=== PATIENT | female | born 1940 | race Caucasian/White ===

== ENCOUNTER → 2016-09-05 | Outpatient (REF) | payer MEDICARE, BC, MEDICAID ==
[~2016-09-05] MED LIST: DONETAB6 PO; DRIS50002 PO; FAMO20TA PO; FLUO10CA8 PO; LEVO50TA5 PO; LOTRCRE TOP; MECL-68 PO; METO25TA74 PO; MIRT1TAB PO; PRAV1TAB39 PO; VITA10002 PO
[2016-09-05 08:51] LABS: MEAN CORPUSCULAR HEMOGLOBIN 28.7 pg (27.0-33.0); MEAN CORPUSCULAR HGB CONC 33.6 g/dl (32.0-36.5); MEAN CORPUSCULAR VOLUME 85.5 fl (80.0-96.0); RED CELL DISTRIBUTION WIDTH 14.9 % (11.5-14.5); WHITE BLOOD COUNT 5.8 K/mm3 (4.0-10.0)
[2016-09-05 09:32] LABS: ALBUMIN 3.1 GM/DL (3.2-5.2); ALBUMIN/GLOBULIN RATIO 1.03 (1.00-1.93); BILIRUBIN,TOTAL 0.4 MG/DL (0.2-1.0); CALCIUM LEVEL 8.5 MG/DL (8.8-10.2); CREATININE FOR GFR 1.67 MG/DL (0.55-1.02); GLOMERULAR FILTRATION RATE 31.8 (>39); POTASSIUM SERUM 4.5 MEQ/L (3.5-5.1); TOTAL PROTEIN 6.1 GM/DL (6.4-8.2)
== END | disposition home or self-care (01) ==
LOC: SKLAB6 07:00
PROVIDERS: ATTEND Internal Medicine
DX: E03.9 Hypothyroidism, unspecified (principal); E11.9 Type 2 diabetes mellitus without complications

== ENCOUNTER → 2016-09-30 | Outpatient (REF) | payer MEDICARE, BC, MEDICAID ==
[2016-09-30 09:18] LABS: CALCIUM LEVEL 8.5 MG/DL (8.8-10.2); CREATININE FOR GFR 2.06 MG/DL (0.55-1.02); GLOMERULAR FILTRATION RATE 24.9 (>39); POTASSIUM SERUM 4.2 MEQ/L (3.5-5.1)
== END | disposition home or self-care (01) ==
LOC: SKLAB6 07:00
PROVIDERS: ATTEND Internal Medicine
DX: Z51.81 Encounter for therapeutic drug level monitoring (principal); Z79.899 Other long term (current) drug therapy

== ENCOUNTER → 2016-10-15 | Outpatient (REF) | payer MEDICARE, BC, MEDICAID ==
[2016-10-15 07:51] LABS: CALCIUM LEVEL 8.5 MG/DL (8.8-10.2); CREATININE FOR GFR 1.81 MG/DL (0.55-1.02); GLOMERULAR FILTRATION RATE 28.9 (>39); POTASSIUM SERUM 4.4 MEQ/L (3.5-5.1)
[2016-10-15 08:17] LABS: MEAN CORPUSCULAR HEMOGLOBIN 30.3 pg (27.0-33.0); MEAN CORPUSCULAR HGB CONC 34.6 g/dl (32.0-36.5); MEAN CORPUSCULAR VOLUME 87.4 fl (80.0-96.0); RED CELL DISTRIBUTION WIDTH 13.7 % (11.5-14.5); WHITE BLOOD COUNT 6.6 K/mm3 (4.0-10.0)
== END ==
LOC: SKLAB6 00:44
PROVIDERS: ATTEND Internal Medicine
DX: I10 Essential (primary) hypertension (principal); D64.9 Anemia, unspecified

== ENCOUNTER → 2016-10-31 | Outpatient (REF) | payer MEDICARE, BC, MEDICAID ==
[2016-10-31 09:32] LABS: MEAN CORPUSCULAR HEMOGLOBIN 29.4 pg (27.0-33.0); MEAN CORPUSCULAR HGB CONC 33.2 g/dl (32.0-36.5); MEAN CORPUSCULAR VOLUME 88.7 fl (80.0-96.0); RED CELL DISTRIBUTION WIDTH 13.3 % (11.5-14.5); WHITE BLOOD COUNT 5.5 K/mm3 (4.0-10.0)
[2016-10-31 10:01] LABS: CALCIUM LEVEL 8.1 MG/DL (8.8-10.2); CREATININE FOR GFR 2.07 MG/DL (0.55-1.02); GLOMERULAR FILTRATION RATE 24.8 (>39); POTASSIUM SERUM 4.4 MEQ/L (3.5-5.1)
== END ==
LOC: SKLAB6 07:00
PROVIDERS: ATTEND Internal Medicine
DX: I12.9 Hypertensive chronic kidney disease with stage 1 through stage 4 chronic kidney disease, or unspecified chronic kidney disease (principal); N18.4 Chronic kidney disease, stage 4 (severe)

== ENCOUNTER → 2016-11-04 | Outpatient (REF) | payer MEDICARE, BC, MEDICAID ==
[2016-11-04 08:57] LABS: CALCIUM LEVEL 8.4 MG/DL (8.8-10.2); CREATININE FOR GFR 1.66 MG/DL (0.55-1.02); POTASSIUM SERUM 4.9 MEQ/L (3.5-5.1)
== END ==
LOC: SKLAB6 07:00
PROVIDERS: ATTEND Internal Medicine
DX: I10 Essential (primary) hypertension (principal)

== ENCOUNTER → 2016-11-28 | Outpatient (REF) | payer MEDICARE, BC, MEDICAID ==
[2016-11-28 08:30] LABS: MEAN CORPUSCULAR HGB CONC 34.7 g/dl (32.0-36.5); MEAN CORPUSCULAR VOLUME 89.6 fl (80.0-96.0); RED CELL DISTRIBUTION WIDTH 13.4 % (11.5-14.5); WHITE BLOOD COUNT 6.3 K/mm3 (4.0-10.0)
[2016-11-28 08:40] LABS: CALCIUM LEVEL 8.6 MG/DL (8.8-10.2); CREATININE FOR GFR 1.91 MG/DL (0.55-1.02); GLOMERULAR FILTRATION RATE 27.2 (>39); POTASSIUM SERUM 4.7 MEQ/L (3.5-5.1)
== END ==
LOC: SKLAB6 07:00
PROVIDERS: ATTEND Internal Medicine
DX: I12.9 Hypertensive chronic kidney disease with stage 1 through stage 4 chronic kidney disease, or unspecified chronic kidney disease (principal); N18.9 Chronic kidney disease, unspecified; E11.9 Type 2 diabetes mellitus without complications

== ENCOUNTER → 2016-12-05 | Outpatient (REF) | payer MEDICARE, BC, MEDICAID ==
[2016-12-05 09:53] LABS: ALBUMIN 3.3 GM/DL (3.2-5.2); ALBUMIN/GLOBULIN RATIO 0.89 (1.00-1.93); BILIRUBIN,TOTAL 0.7 MG/DL (0.2-1.0); CALCIUM LEVEL 8.8 MG/DL (8.8-10.2); CREATININE FOR GFR 1.9 MG/DL (0.55-1.02); GLOMERULAR FILTRATION RATE 27.4 (>39); POTASSIUM SERUM 4.9 MEQ/L (3.5-5.1)
== END ==
LOC: SKLAB6 07:00
PROVIDERS: ATTEND Internal Medicine
DX: N18.4 Chronic kidney disease, stage 4 (severe) (principal); D63.1 Anemia in chronic kidney disease; E03.9 Hypothyroidism, unspecified

== ENCOUNTER → 2016-12-05 | Outpatient (REF) | payer MEDICARE, BC, MEDICAID | LOC: SKLAB6 07:00 | PROVIDERS: ATTEND Internal Medicine | DX: E11.9 Type 2 diabetes mellitus without complications (principal) ==

== ENCOUNTER → 2017-01-02 | Outpatient (REF) | payer MEDICARE, BC, MEDICAID ==
[2017-01-02 09:14] LABS: MEAN CORPUSCULAR HEMOGLOBIN 31.6 pg (27.0-33.0); MEAN CORPUSCULAR HGB CONC 33.6 g/dl (32.0-36.5); MEAN CORPUSCULAR VOLUME 94.2 fl (80.0-96.0); RED CELL DISTRIBUTION WIDTH 12.9 % (11.5-14.5); WHITE BLOOD COUNT 5.7 K/mm3 (4.0-10.0)
[2017-01-02 09:39] LABS: CALCIUM LEVEL 8.1 MG/DL (8.8-10.2); CREATININE FOR GFR 1.59 MG/DL (0.55-1.02); GLOMERULAR FILTRATION RATE 33.5 (>39); POTASSIUM SERUM 4.2 MEQ/L (3.5-5.1)
== END ==
LOC: SKLAB6 07:00
PROVIDERS: ATTEND Internal Medicine
DX: I12.9 Hypertensive chronic kidney disease with stage 1 through stage 4 chronic kidney disease, or unspecified chronic kidney disease (principal); N18.9 Chronic kidney disease, unspecified; D64.9 Anemia, unspecified

== ENCOUNTER → 2017-01-21 | Outpatient (REF) | payer MEDICARE, BC, MEDICAID ==
[~2017-01-21] MED LIST changes: +AMLO5TAB2 PO; +BENCRE TOP; +BUSP10TA PO; +CALC1250 PO; +DULC10SU2 PR; +ENEM1ENE4 PR; +FEVE650S8 PR; +HYDR10TAB PO; +INSUDET SC; +JANU25TA PO; +LEXA1TAB PO; +MEMA1TAB2 PO; +MILKSUS PO; +SENN8.6T7 PO; +TYLE325T5 PO; +VITA100066 PO
--- NOTE | 2017-01-21 22:35 | ECGEPIP ---
Stationary ECG Study [facility] Test Date: 2017-01-21 Pat Name: EMILY MURPHY Department: Room: - Gender: F Enrollment Management Coordinator: ARNULFO : 1940 Requested By: Apryl Hernandez Order Number: [id number] Reading MD: Rudy Ellis Measurements Intervals [place] Rate: 63 P: 61 [place]: 179 QRS: 8 QRSD: 89 T: 131 QT: 395 QTc: 405 Interpretive Statements SINUS RHYTHM, Poor R-wave progression. NONSPECIFIC T-WAVE ABNORMALITY Electronically Signed On 01-21-2017 22:35:28 EDT by Rudy Ellis
== END ==
LOC: SKLAB6 08:00
PROVIDERS: ATTEND Internal Medicine
DX: R94.31 Abnormal electrocardiogram [ECG] [EKG] (principal)

== ENCOUNTER 2017-01-30 05:55 | Observation (INO) | payer MEDICARE, BC, MEDICAID ==
[~2017-01-30] VITALS: Ht 160 cm; Wt 90.9 kg
[~2017-01-30 05:55] MED LIST changes: -AMLO5TAB2 PO; -BENCRE TOP; -BUSP10TA PO; -CALC1250 PO; -DULC10SU2 PR; -ENEM1ENE4 PR; -FEVE650S8 PR; -HYDR10TAB PO; -INSUDET SC; -JANU25TA PO; -LEXA1TAB PO; -MEMA1TAB2 PO; +METO1TAB32 PO; -METO25TA74 PO; -MILKSUS PO; -SENN8.6T7 PO; -TYLE325T5 PO; -VITA100066 PO
[2017-01-30] MEDS ORDERED: ASPIRIN 81 MG CHEW TABLET PO ONE (06:45)
[2017-01-30 07:08] LABS: BASO % 0.4 % (0.0-1.0); EOS # 0.1 K/mm3 (0.0-0.50); EOS % 1.5 % (0.0-3.0); LARGE UNSTAINED CELL # 0.1 K/mm3 (0.0-0.4); LARGE UNSTAINED CELL % 1.3 % (0.0-4.0); LYMPH # 1.2 K/mm3 (1.5-4.5); LYMPH % 14.8 % (24.0-44.0); MEAN CORPUSCULAR HEMOGLOBIN 31.6 pg (27.0-33.0); MEAN CORPUSCULAR HGB CONC 34.9 g/dl (32.0-36.5); MEAN CORPUSCULAR VOLUME 90.5 fl (80.0-96.0); MONO # 0.4 K/mm3 (0.0-0.8); MONO % 5.5 % (0.0-5.0); NEUTROPHILS # 5.7 K/mm3 (1.8-7.7); NEUTROPHILS % 76.4 % (36.0-66.0); PLATELET COUNT, AUTOMATED 178 k/mm3 (150-450); RED CELL DISTRIBUTION WIDTH 12.9 % (11.5-14.5); WHITE BLOOD COUNT 7.4 K/mm3 (4.0-10.0)
[2017-01-30 07:24] LABS: CALCIUM LEVEL 8.4 MG/DL (8.8-10.2); CREATININE FOR GFR 1.83 MG/DL (0.55-1.02); GLOMERULAR FILTRATION RATE 28.5 (>39); POTASSIUM SERUM 4.5 MEQ/L (3.5-5.1)
[2017-01-30] MEDS ORDERED: METOPROLOL SUCC *XL* 25MG TAB (TopROL *XL*) PO ONE (07:30)
[2017-01-30] MEDS ORDERED: hydrALAZINE INJ 20 MG/ML VIAL IV ONE ×3 (07:45→16:45)
--- NOTE | 2017-01-30 08:05 | REP ---
Portable chest: Single view. History: Chest pain Comparison study: April 21, 2016. Findings: EKG monitoring electrodes overlie the chest. The lungs are well inflated and free of infiltrate. Pleural angles are sharp. The heart is enlarged unchanged from prior study. Pulmonary vasculature is not increased. Impression: No active disease. Signed by Umair Odonnell MD 01/30/2017 07:56 A
[2017-01-30] MEDS ORDERED: VALSARTAN 80 MG TAB (DIOVAN) PO ONE (14:45)
[2017-01-30] MEDS ORDERED: VITA100066 PO (16:36)
[2017-01-30] MEDS ORDERED: JANU25TA PO (16:36)
[2017-01-30] MEDS ORDERED: SENN8.6T7 PO (16:36)
[2017-01-30] MEDS ORDERED: BUSP10TA PO (16:36)
[2017-01-30] MEDS ORDERED: INSUDET SC (16:36)
[2017-01-30] MEDS ORDERED: MEMA1TAB2 PO (16:36)
[2017-01-30] MEDS ORDERED: LEXA1TAB PO (16:36)
[2017-01-30] MEDS ORDERED: VITA10002 PO (16:36)
[2017-01-30] MEDS ORDERED: MILKSUS PO (16:42)
[2017-01-30] MEDS ORDERED: FEVE650S8 PR (16:42)
[2017-01-30] MEDS ORDERED: TYLE325T5 PO (16:42)
[2017-01-30] MEDS ORDERED: BENCRE TOP (16:42)
[2017-01-30] MEDS ORDERED: ENEM1ENE4 PR (16:42)
[2017-01-30] MEDS ORDERED: DULC10SU2 PR (16:42)
[2017-01-30] MEDS ORDERED: CALC1250 PO (16:42)
[2017-01-30] MEDS ORDERED: CALCIUM CARB SUSP 1250MG/5ML UNIT DOSE CUP PO PRN (17:30)
[2017-01-30] MEDS ORDERED: MOM 30ML SUSPENSION UDC PO PRN (17:30)
[2017-01-30] MEDS: HumaLOG INSULIN (NovoLOG) PER UNIT SC SCH ×2 (17:30→20:38)
[2017-01-30] MEDS ORDERED: GLUCOSE 4 GM CHEW TABLET PO PRN (17:30)
[2017-01-30] MEDS ORDERED: BISACODYL 5 MG TAB PO PRN (17:30)
[2017-01-30] MEDS ORDERED: FLEET ENEMA PR PRN (17:30)
[2017-01-30] MEDS ORDERED: GLUCAGON FOR INJ 1 MG VIAL (J1610) SC PRN (17:30)
[2017-01-30] MEDS ORDERED: DEXTROSE 50% 50 ML SYRINGE IV PRN (17:30)
[2017-01-30] MEDS ORDERED: **hydrALAZINE** 10 MG TAB PO PRN (18:15)
--- NOTE | 2017-01-30 18:50 | REPUSA ---
CLINICAL HISTORY: HYPERTENSIVE URGENCY TECHNIQUE: Multiple axial CT images were obtained through the brain without IV contrast material. COMMENTS: There is normal configuration of sella turcica. There are no intra or extra-axial collections. There is no mass effect or midline shift. There is no evidence of hematoma formation. No hydrocephalus is p resent. The ventricles are symmetrical. No abnormal calcifications are present. There is diffuse age-appropriate cerebellar and cerebral atrophy with proportionally dilated ventricl es and cortical sulci. There are bilateral confluent periventricular and subcortical white matter hypolucencies compatible w ith severe chronic microvascular disease. Otherwise, no significant focal abnormalities are seen either in the posterior fossa or supratentoria l compartment. IMPRESSION: 1. Severe cerebellar and cerebral atrophy. 2. Severe chronic microvascular disease. 3. No evidence of acute intracranial pathology. Thank you for your kind referral of this patient.
[2017-01-30] MEDS: ACETAMINOPHEN TAB 650MG DOSE (2X325MG) PO PRN (19:34)
[2017-01-30 20:50] VITALS: BP 172/77
[2017-01-30] MEDS ORDERED: **hydrALAZINE** 10 MG TAB PO SCH (21:00)
[2017-01-30] MEDS: busPIRone 10 MG TAB PO SCH (21:11)
[2017-01-30] MEDS: SENOKOT S TAB PO SCH (21:11)
[2017-01-30] MEDS: HEPARIN SOD (PORCINE) 5000 UNITS/ML VIAL SC SCH (21:11)
--- NOTE | 2017-01-30 22:48 | HPE ---
DATE OF ADMISSION: 01/30/2017 PRIMARY CARE PHYSICIAN: Dr. Eaton. CHIEF COMPLAINT: Hypertension urgency. HISTORY OF PRESENT ILLNESS: Ms. Hernandez is a 76-year-old female with multiple past medical history who presents to the ER due to experiencing hypotension urgency. Patient is from [facility] and expressed this morning when nurses taking her temperature, they found that her temperature is elevated, however patient expressed that she had an episode like this before and she was transferred to the ED. Patient denies having chest pain, palpitation, racing or skipping heart beat, headache, vision changes, hearing changes. Patient also denies having seizure type activities, abdominal pain or weaknesses. However, patient expressed that last night patient had one episode of chest discomfort, mostly in the mediastinum, however patient expressed she had the chest discomfort before, and it comes and goes. Patient denies bleeding, or having hematuria or hematochezia. Patient denies fever, chills or night sweats. Patient also denies having sick contacts. At ER patient received aspirin 325, also one dose of Toprol XL 25 mg, and hydralazine for a total dose of 40 mg as well as one dose of Valsartan 80 mg by mouth. Hospitalist was called to admit the patient. ALLERGIES: 1. PIOGLITAZONE 2. SHELLFISH allergy. PAST MEDICAL HISTORY: 1. Diabetes. 2. Hypertension. 3. Hyperlipidemia. 4. Anxiety. 5. Depression. 6. Dementia without any behavior symptoms. PAST SURGICAL HISTORY: 1. . 2. Hysterectomy. 3. Bilateral knee replacement. 4. Eye implantation. 5. Colonoscopy in 2005. HOME MEDICATION: - acetaminophen 650 mg by mouth every 4 hours as needed pain - Tylenol 650 mg by mouth every 4 hours as needed pain - BenGay extra strength, one dose topical twice a day applied to right shoulder - Dulcolax 10 mg as needed constipation - Buspirone 10 mg by mouth twice a day - calcium carbonate 30 mL by mouth every 8 hours as needed dyspnea - vitamin D 1000 units by mouth daily - vitamin B12 1000 mcg by mouth daily - Senna S 1 tab by mouth twice a day - donepezil 10 mg by mouth at bedtime - enema as needed constipation - Lexapro 10mg by mouth twice a day - Levemir 18 units before food - Synthroid 50 mcg by mouth daily - memantine 10 mg by mouth daily - metoprolol succinate 25 mg by mouth daily - Milk of Magnesia 30 mL by mouth daily as needed constipation - Januvia 25 mg by mouth daily FAMILY HISTORY: Patient's mother due to stroke. Patient father decreased at age 80 due to diabetes. Patient has two brothers and two sisters, who are healthy for their age. Patient expressed she has one son and two daughters who are healthy for their age. SOCIAL HISTORY: Patient is living in [facility] and patient denies history of smoking in her life, however patient had been exposed to second hand smoking due to her being a heavy smoker. Patient was drinking alcohol occasionally. Patient denies illicit drug use. Patient has not traveled outside of the [place]. Patient does not have any pets. REVIEW OF SYSTEMS: GENERAL: Patient denies fever, chills, night sweats, weight loss of weight gain. HEENT: Patient denies any vision or hearing changes. Patient denies headaches, lightheadedness, or dizziness. Patient also denies problem with chewing food or sinusitis. NECK: Patient denies decreased range of motion of her neck. HEART: Patient denies palpitations, racing or skipping heartbeat, chest pain or chest discomfort. LUNGS: The patient denies shortness of breath, coughing or wheezing. ABDOMEN: The patient denies abdominal pain, nausea, vomiting, diarrhea, constipation, melena, hematochezia, hemoptysis. NEUROLOGICAL: The patient denies history of transient ischemic attack (TIA), cerebrovascular accident (CVA) or seizure type activity. PHYSICAL EXAMINATION: VITAL SIGNS: Temperature 97.6, pulse 69, respiratory rate 20, blood pressure 183/83, pulse oximetry 94 on room air. GENERAL APPEARANCE: The patient was lying in bed in no acute distress. Patient was awake, alert and oriented to time and place but not person. HEENT: Normocephalic, atraumatic. Pupils are equal, reactive to light. Oral mucosa is moist. NECK: Soft, supple. No lymphadenopathy or thyromegaly. No jugular venous distention (JVD). HEART: Regular rate and rhythm. Normal S1, S2. ABDOMEN: Soft, nontender, obese. Positive bowel sounds in all quadrants. EXTREMITIES: No lower extremity edema. +2 pulses in both lower extremities. Patient has normal sensation in both upper and lower extremities. Patient's has normal range of motion both lower extremities. NEUROLOGICAL: Cranial nerves II through XII intact. No focal deficiencies. LABORATORY DATA: WBC 7.4, RBC 3.93, hemoglobin 12.4, hematocrit 35.6, MCV 90.5, MCH 31.6, MCHC 34.9, RDW 12.9, platelet count 178, neutrophil percentage 76.4, lymphocyte percentage 14.8, monocyte percentage 5.5, eosinophil percentage 1.5, basophil percentage 0.4, leucocyte percentage 1.3. Sodium 137, potassium 4.5, chloride 103, carbon dioxide 28, anion gap 6, BUN 23, creatinine 1.83, GFR 28.5. Fasting glucose 217, calcium 8.4, total creatinine 61, CK MB 1.7, Troponin I 0.02, IMAGING TECHNIQUE: Chest x-ray shows no acute disease. CT of the head shows severe cerebral and cerebellar atrophy, also severe chronic microvascular disease and no evidence of acute intracranial pathology. ASSESSMENT AND PLAN: 1. Hypertension urgency. At this time we have ordered echocardiogram. Result is pending at this time. After patient was started on hydralazine, patient's blood pressure has decreased to the normal range. We will continue patient on hydralazine as needed for systolic blood pressure more than 150, and holding parameter for systolic blood pressure of less than 110 and heart rate less than 60. Also we will continue patient on Toprol XL with holding parameters of the heart rate less than 60. Patient also received Valsartan, however we hold the Valsartan due to abnormal renal function. Also, we have ordered the urine creatinine and sodium for calculating FENA and the result is pending. CT of the head did not show any new pathology. We will continue to monitor patient for abnormal symptoms. 2. Hypertension. At home, patient was on Valsartan, however I have stopped Valsartan. We will continue patient on hydralazine as needed, as well as metoprolol succinate. At this time, patient is stable. 3. Hyperlipidemia. This is a chronic issue. 4. Anxiety. We will continue patient on Lexapro 10 mg by mouth daily. 5. Diabetes. We will continue patient with the home dosage of Levemir. Patient at home is on Januvia, however we held the Januvia due to abnormal kidney function, and we have started patient on sliding scale. 6. Acute renal failure superimposed on chronic renal disease. I do not have any documentation regarding patient's baseline, however based on previous labs, patient's creatinine has increased from her baseline. At this time, we have stopped the neurogenic medications. We will continue monitoring patient's renal function. 7. Deep vein thrombosis prophylaxis. Patient is on heparin 5000 twice a day. My preceptor for this patient encounter was Dr. Yaya Nava. The preceptor was physically present in the building during the encounter and was fully available as needed. All aspects of the patient interview, examination, medical decision making process, and medical care plan development were reviewed and approved by the preceptor. The preceptor is aware and concurs with the plan as stated in the body of this note and will attest to such by his/her co-signature. SERGIO
[2017-01-31] VITALS (15 sets, daily range): BP systolic 152–198; BP diastolic 62–100
[2017-01-31] MEDS: ONDANSETRON 4MG/2ML VIAL (J2405) IV PRN ×2 (00:30→06:33)
[2017-01-31] MEDS ORDERED: amLODIPine 10 MG TAB PO ONE (01:45)
[2017-01-31] MEDS ORDERED: hydrALAZINE INJ 20 MG/ML VIAL IV ONE (02:45)
[2017-01-31] MEDS: LEVOTHYROXINE 50MCG TABLET (0.05MG) PO SCH (06:33)
[2017-01-31] MEDS: HumaLOG INSULIN (NovoLOG) PER UNIT SC SCH ×4 (07:47→21:00)
[2017-01-31 07:55] LABS: ALBUMIN 3.4 GM/DL (3.2-5.2); ALBUMIN/GLOBULIN RATIO 1.03 (1.00-1.93); BILIRUBIN,TOTAL 0.6 MG/DL (0.2-1.0); CALCIUM LEVEL 8.7 MG/DL (8.8-10.2); CREATININE FOR GFR 1.69 MG/DL (0.55-1.02); GLOMERULAR FILTRATION RATE 31.2 (>39); MAGNESIUM LEVEL 2.3 MG/DL (1.8-2.4); TOTAL PROTEIN 6.7 GM/DL (6.4-8.2)
[2017-01-31 07:56] LABS: POTASSIUM SERUM 5.4 MEQ/L (3.5-5.1)
[2017-01-31 08:00] LABS: BASO % 0.4 % (0.0-1.0); EOS % 0.4 % (0.0-3.0); LARGE UNSTAINED CELL # 0.1 K/mm3 (0.0-0.4); LARGE UNSTAINED CELL % 1.1 % (0.0-4.0); LYMPH # 0.9 K/mm3 (1.5-4.5); MEAN CORPUSCULAR HEMOGLOBIN 31.9 pg (27.0-33.0); MEAN CORPUSCULAR HGB CONC 34.7 g/dl (32.0-36.5); MONO # 0.4 K/mm3 (0.0-0.8); MONO % 5.3 % (0.0-5.0); NEUTROPHILS # 6.3 K/mm3 (1.8-7.7); NEUTROPHILS % 82.9 % (36.0-66.0); PLATELET COUNT, AUTOMATED 175 k/mm3 (150-450); RED CELL DISTRIBUTION WIDTH 13.2 % (11.5-14.5); WHITE BLOOD COUNT 7.6 K/mm3 (4.0-10.0)
[2017-01-31] MEDS: HEPARIN SOD (PORCINE) 5000 UNITS/ML VIAL SC SCH ×2 (08:40→22:14)
[2017-01-31] MEDS: busPIRone 10 MG TAB PO SCH ×2 (08:41→22:12)
[2017-01-31] MEDS: SENOKOT S TAB PO SCH ×2 (08:41→21:00)
[2017-01-31] MEDS: ESCITALOPRAM OXALATE 10 MG TAB (LEXAPRO) PO SCH (08:41)
[2017-01-31] MEDS: ACETAMINOPHEN TAB 650MG DOSE (2X325MG) PO PRN (08:41)
[2017-01-31] MEDS: METOPROLOL SUCC *XL* 25MG TAB (TopROL *XL*) PO SCH (08:42)
[2017-01-31] MEDS: LEVEMIR (INSULIN DETEMIR) 1 UNITS/0.01ML SC SCH (08:42)
[2017-01-31] MEDS: VITAMIN D 1,000 INTERNATIONAL UNITS TABLET PO SCH (08:43)
[2017-01-31] MEDS: CYANOCOBALAMIN 500 MCG TAB PO SCH (08:43)
[2017-01-31] MEDS ORDERED: **hydrALAZINE** 10 MG TAB PO SCH (09:00)
--- NOTE | 2017-01-31 11:47 | ECGEPIP ---
Stationary ECG Study [facility] - ED Test Date: 2017-01-30 Pat Name: EMILY MURPHY Department: Room: - Gender: F Life Agent: lyndsay : 1940 Requested By: CONRADO Abdul Order Number: [id number] Reading MD: Rneate De La Paz Measurements Intervals [place] Rate: 57 P: 46 [place]: 175 QRS: -5 QRSD: 92 T: 161 QT: 436 QTc: 427 Interpretive Statements SINUS BRADYCARDIA MODERATE T-WAVE ABNORMALITY, CONSIDER LATERAL ISCHEMIA SIMILAR 01/21/17 Electronically Signed On 01-31-2017 11:47:08 EDT by Renate De La Paz
--- NOTE | 2017-01-31 11:51 | ECGEPIP ---
Stationary ECG Study [facility] - ED Test Date: 2017-01-30 Pat Name: EMILY MURPHY Department: Room: - Gender: F Hand Miter Operator: DAWSON : 1940 Requested By: ROZ Ellison Order Number: [id number] Reading MD: Renate De La Paz Measurements Intervals [place] Rate: 63 P: 48 CT: 149 QRS: -8 QRSD: 91 T: 162 QT: 421 QTc: 433 Interpretive Statements SINUS RHYTHM MODERATE T-WAVE ABNORMALITY, CONSIDER LATERAL ISCHEMIA SIMILAR 01/30/17 Electronically Signed On 01-31-2017 11:50:51 EDT by Renate De La Paz
--- NOTE | 2017-01-31 13:34 | IPNPDOC ---
Subjective Date Seen The patient was seen on 01/31/17. Subjective Chief Complaint/HPI The patient is a 76-year-old female admitted with a reason for visit of Hypertensive Urgency. Events since last encounter Feeling ok, wonders why she is here. Having trouble with having a bm, no chest pain, not short of breath Constitutional: Denies: Chills, Fever Pulmonary: Denies: Dyspnea, Cough Cardiovascular: Denies: Chest Pain Gastrointestinal: Reports: Constipation, Denies: Nausea, Vomiting, Abdominal Pain Objective Physical Examination General Exam: Positive: Alert, Cooperative Eye Exam: Negative: Sclera icteric ENT Exam: Positive: Mucous membr. moist/pink Chest Exam: Positive: Diminished, Negative: Rales, Rhonchi, Wheezing Heart Exam: Positive: Rate Normal, Normal S1, Normal S2 Telemetry: Positive: No significant arrhythmia Abdomen Exam: Positive: BS Hypoactive, Soft, Tenderness (mild llq, no rebound, no guarding, doughy) Extremity Exam: Negative: Edema Assessment /Plan Problems (1) Hypertensive urgency Status: Acute Problem Text: Started on antihypertensives, bp reasonably controlled hydralazine and beta lio- I will leave hydralazine as needed, and schedule norvasc (2) Diabetes Status: Chronic Problem Text: sliding scale insulin - monitor clinically (3) Depression with anxiety Status: Chronic (4) Dementia Status: Chronic (5) Constipation Status: Acute Problem Text: start bowel regimen - monitor for effect Benign abdomen Plan/VTE VTE Prophylaxis Ordered?: Yes VS, I&O, 24H, Fishbone Vital Signs/I&O Vital Signs Date Time Temp Pulse Resp B/P (MAP) Pulse Ox O2 Delivery O2 Flow Rate FiO2 01/31/17 08:46 166/74 01/31/17 08:42 96 01/31/17 08:00 98.8 20 94 Room Air I&O- Last 24 Hours up to 6 AM 01/31/17 06:00 Output Total 950 ml Balance -950 ml Laboratory Data 24H LABS Laboratory Tests 2 01/31/17 07:20: White Blood Count 7.6, Red Blood Count 4.13, Hemoglobin 13.2, Hematocrit 38.0, Mean Corpuscular Volume 92.0, Mean Corpuscular Hemoglobin 31.9, Mean Corpuscular Hemoglobin Concent 34.7, Red Cell Distribution Width 13.2, Platelet Count 175, Neutrophils (%) (Auto) 82.9H, Lymphocytes (%) (Auto) 10.0L, Monocytes (%) (Auto) 5.3H, Eosinophils (%) (Auto) 0.4, Basophils (%) (Auto) 0.4 , Neutrophils # (Auto) 6.3, Lymphocytes # (Auto) 0.9L, Monocytes # (Auto) 0.4, Eosinophils # (Auto) 0.0, Basophils # (Auto) 0.0, Large Unclassified Cells % 1.1 , Large Unclassified Cells # 0.1, Anion Gap 6L, Glomerular Filtration Rate 31.2L , Blood Urea Nitrogen 24H, Creatinine 1.69H, Sodium Level 139, Potassium Level 5.4H, Chloride Level 102, Carbon Dioxide Level 31, Calcium Level 8.7L, Aspartate Amino Transf (AST/SGOT) 17, Alanine Aminotransferase (ALT/SGPT) 18, Total Creatine Kinase 72, Alkaline Phosphatase 50, Total Bilirubin 0.6, Total Protein 6.7, Albumin 3.4, Magnesium Level 2.3, Creatine Kinase MB 1.6, Creatine Kinase MB Relative Index 2.22, Troponin I 0.02, Albumin/Globulin Ratio 1.03 CBC/BMP Laboratory Tests 01/31/17 07:20 Red Blood Count 4.13, Mean Corpuscular Volume 92.0, Mean Corpuscular Hemoglobin 31.9, Mean Corpuscular Hemoglobin Concent 34.7, Red Cell Distribution Width 13.2 , Neutrophils (%) (Auto) 82.9 H, Lymphocytes (%) (Auto) 10.0 L, Monocytes (%) ( Auto) 5.3 H, Eosinophils (%) (Auto) 0.4, Basophils (%) (Auto) 0.4, Neutrophils # (Auto) 6.3, Lymphocytes # (Auto) 0.9 L, Monocytes # (Auto) 0.4, Eosinophils # (Auto) 0.0, Basophils # (Auto) 0.0, Calcium Level 8.7 L, Aspartate Amino Transf (AST/SGOT) 17, Alanine Aminotransferase (ALT/SGPT) 18, Total Creatine Kinase 72 , Alkaline Phosphatase 50, Total Bilirubin 0.6, Total Protein 6.7, Albumin 3.4 ANUJA URBAN MD Jan 31, 2017 13:34
[2017-01-31] MEDS: **hydrALAZINE** 10 MG TAB PO PRN (14:52)
[2017-01-31 16:42] LABS: CALCIUM LEVEL 8.8 MG/DL (8.8-10.2); CREATININE FOR GFR 1.71 MG/DL (0.55-1.02); GLOMERULAR FILTRATION RATE 30.8 (>39); POTASSIUM SERUM 4.4 MEQ/L (3.5-5.1)
[2017-01-31] MEDS: amLODIPine 5 MG TAB PO SCH (22:13)
[2017-01-31 22:17] LABS: CREATININE, SERUM 1.7 MG/DL (0.6-1.0)
[2017-01-31 23:11] LABS: CREATININE CLEARANCE, URINE 26.3 ML/MIN (75-115)
[2017-02-01] VITALS (7 sets, daily range): BP systolic 119–173; BP diastolic 51–81
[2017-02-01] MEDS: **hydrALAZINE** 10 MG TAB PO PRN ×2 (00:50→13:48)
[2017-02-01] MEDS: ACETAMINOPHEN TAB 650MG DOSE (2X325MG) PO PRN (00:56)
[2017-02-01] MEDS ORDERED: hydrALAZINE INJ 20 MG/ML VIAL IV PRN (02:45)
[2017-02-01] MEDS: LEVOTHYROXINE 50MCG TABLET (0.05MG) PO SCH (05:08)
[2017-02-01 05:35] LABS: BASO % 0.2 % (0.0-1.0); EOS # 0.1 K/mm3 (0.0-0.50); EOS % 1.2 % (0.0-3.0); LARGE UNSTAINED CELL # 0.1 K/mm3 (0.0-0.4); LARGE UNSTAINED CELL % 1.3 % (0.0-4.0); LYMPH # 1.4 K/mm3 (1.5-4.5); MEAN CORPUSCULAR HGB CONC 34.5 g/dl (32.0-36.5); MEAN CORPUSCULAR VOLUME 92.9 fl (80.0-96.0); MONO # 0.4 K/mm3 (0.0-0.8); MONO % 5.4 % (0.0-5.0); NEUTROPHILS # 5.6 K/mm3 (1.8-7.7); NEUTROPHILS % 74.9 % (36.0-66.0); PLATELET COUNT, AUTOMATED 190 k/mm3 (150-450); RED CELL DISTRIBUTION WIDTH 13.1 % (11.5-14.5); WHITE BLOOD COUNT 7.5 K/mm3 (4.0-10.0)
[2017-02-01 05:44] LABS: ALBUMIN 3.1 GM/DL (3.2-5.2); ALBUMIN/GLOBULIN RATIO 0.86 (1.00-1.93); BILIRUBIN,TOTAL 0.5 MG/DL (0.2-1.0); CALCIUM LEVEL 8.5 MG/DL (8.8-10.2); CREATININE FOR GFR 1.63 MG/DL (0.55-1.02); GLOMERULAR FILTRATION RATE 32.6 (>39); MAGNESIUM LEVEL 2.5 MG/DL (1.8-2.4); POTASSIUM SERUM 4.1 MEQ/L (3.5-5.1); TOTAL PROTEIN 6.7 GM/DL (6.4-8.2)
[2017-02-01] MEDS: HumaLOG INSULIN (NovoLOG) PER UNIT SC SCH ×4 (07:36→22:09)
[2017-02-01] MEDS: amLODIPine 5 MG TAB PO SCH ×2 (08:45→22:08)
[2017-02-01] MEDS: CYANOCOBALAMIN 500 MCG TAB PO SCH (08:53)
[2017-02-01] MEDS: VITAMIN D 1,000 INTERNATIONAL UNITS TABLET PO SCH (08:53)
[2017-02-01] MEDS: SENOKOT S TAB PO SCH ×2 (08:53→22:08)
[2017-02-01] MEDS: ESCITALOPRAM OXALATE 10 MG TAB (LEXAPRO) PO SCH (08:53)
[2017-02-01] MEDS: busPIRone 10 MG TAB PO SCH ×2 (08:53→22:08)
[2017-02-01] MEDS: METOPROLOL SUCC *XL* 25MG TAB (TopROL *XL*) PO SCH (08:53)
[2017-02-01] MEDS: HEPARIN SOD (PORCINE) 5000 UNITS/ML VIAL SC SCH ×2 (08:53→22:09)
[2017-02-01] MEDS: LEVEMIR (INSULIN DETEMIR) 1 UNITS/0.01ML SC SCH (08:56)
--- NOTE | 2017-02-01 13:36 | IPNPDOC ---
Subjective Date Seen The patient was seen on 02/01/17. Subjective Chief Complaint/HPI The patient is a 76-year-old female admitted with a reason for visit of Hypertensive Urgency. Events since last encounter Poor historian, but no complaint of pain, chest pain, shortness of breath, tolerating breakfast Constitutional: Denies: Chills, Fever Pulmonary: Denies: Dyspnea, Cough Cardiovascular: Denies: Chest Pain, Palpitations Gastrointestinal: Denies: Nausea, Vomiting Objective Physical Examination General Exam: Positive: Alert, Cooperative Eye Exam: Negative: Sclera icteric ENT Exam: Positive: Mucous membr. moist/pink Chest Exam: Positive: Normal air movement, Negative: Rales, Rhonchi, Wheezing Heart Exam: Positive: Rate Normal, Normal S1, Normal S2 Telemetry: Positive: No significant arrhythmia Abdomen Exam: Positive: BS Hypoactive, Soft, Negative: Tenderness Extremity Exam: Negative: Edema Assessment /Plan Problems (1) Hypertensive urgency Status: Acute Problem Text: Started on antihypertensives, bp reasonably controlled hydralazine and beta lio- I will leave hydralazine as needed, and schedule norvas Family not interested in extensive work-up - will likely dc tomorrow (2) Diabetes Status: Chronic Problem Text: sliding scale insulin - monitor clinically (3) Depression with anxiety Status: Chronic (4) Dementia Status: Chronic (5) Constipation Status: Acute Problem Text: start bowel regimen - 2 BMs noted Benign abdomen Plan/VTE VTE Prophylaxis Ordered?: Yes VS, I&O, 24H, Fishbone Vital Signs/I&O Vital Signs Date Time Temp Pulse Resp B/P (MAP) Pulse Ox O2 Delivery O2 Flow Rate FiO2 02/01/17 12:00 98.1 67 20 154/72 (99) 96 Room Air I&O- Last 24 Hours up to 6 AM 02/01/17 06:00 Intake Total 1510 ml Output Total 1350 ml Balance 160 ml Laboratory Data 24H LABS Laboratory Tests 2 01/31/17 15:59: Anion Gap 5L, Glomerular Filtration Rate 30.8L, Blood Urea Nitrogen 26H, Creatinine 1.71H, Sodium Level 137, Potassium Level 4.4, Chloride Level 103, Carbon Dioxide Level 29, Calcium Level 8.8 01/31/17 16:52: Bedside Glucose (Misc Panel) 150H 01/31/17 21:05: Bedside Glucose (Misc Panel) 242H 01/31/17 22:00: Urine Total Volume 1150, Urine Creatinine 56.0, Creatinine Clearance 26.3L 01/31/17 22:25: Urine Random Sodium 75 02/01/17 05:16: White Blood Count 7.5, Red Blood Count 3.89L, Hemoglobin 12.4, Hematocrit 36.1, Mean Corpuscular Volume 92.9, Mean Corpuscular Hemoglobin 32.0, Mean Corpuscular Hemoglobin Concent 34.5, Red Cell Distribution Width 13.1, Platelet Count 190, Neutrophils (%) (Auto) 74.9H, Lymphocytes (%) (Auto) 17.0L, Monocytes (%) (Auto) 5.4H, Eosinophils (%) (Auto) 1.2, Basophils (%) (Auto) 0.2 , Neutrophils # (Auto) 5.6, Lymphocytes # (Auto) 1.4L, Monocytes # (Auto) 0.4, Eosinophils # (Auto) 0.1, Basophils # (Auto) 0.0, Large Unclassified Cells % 1.3 , Large Unclassified Cells # 0.1, Anion Gap 7L, Glomerular Filtration Rate 32.6L , Blood Urea Nitrogen 24H, Creatinine 1.63H, Sodium Level 137, Potassium Level 4.1, Chloride Level 102, Carbon Dioxide Level 28, Calcium Level 8.5L, Aspartate Amino Transf (AST/SGOT) 16, Alanine Aminotransferase (ALT/SGPT) 17, Alkaline Phosphatase 45, Total Bilirubin 0.5, Total Protein 6.7, Albumin 3.1L, Magnesium Level 2.5H, Albumin/Globulin Ratio 0.86L 02/01/17 11:37: Bedside Glucose (Misc Panel) 214H CBC/BMP Laboratory Tests 01/31/17 15:59 Calcium Level 8.8 01/31/17 22:00 02/01/17 05:16 Calcium Level 8.5 L, Red Blood Count 3.89 L, Mean Corpuscular Volume 92.9, Mean Corpuscular Hemoglobin 32.0, Mean Corpuscular Hemoglobin Concent 34.5, Red Cell Distribution Width 13.1, Neutrophils (%) (Auto) 74.9 H, Lymphocytes (%) (Auto) 17.0 L, Monocytes (%) (Auto) 5.4 H, Eosinophils (%) (Auto) 1.2, Basophils (%) ( Auto) 0.2, Neutrophils # (Auto) 5.6, Lymphocytes # (Auto) 1.4 L, Monocytes # ( Auto) 0.4, Eosinophils # (Auto) 0.1, Basophils # (Auto) 0.0, Aspartate Amino Transf (AST/SGOT) 16, Alanine Aminotransferase (ALT/SGPT) 17, Alkaline Phosphatase 45, Total Bilirubin 0.5, Total Protein 6.7, Albumin 3.1 L ANUJA URBAN MD Feb 01, 2017 13:36
[2017-02-02 00:50] VITALS: BP 190/92
[2017-02-02] MEDS: **hydrALAZINE** 10 MG TAB PO PRN (00:50)
[2017-02-02 00:52] VITALS: BP 190/92
[2017-02-02 04:51] VITALS: BP 154/68
[2017-02-02] MEDS: LEVOTHYROXINE 50MCG TABLET (0.05MG) PO SCH (04:57)
[2017-02-02 05:10] LABS: BASO % 0.3 % (0.0-1.0); EOS # 0.1 K/mm3 (0.0-0.50); EOS % 1.3 % (0.0-3.0); LARGE UNSTAINED CELL # 0.1 K/mm3 (0.0-0.4); LARGE UNSTAINED CELL % 1.5 % (0.0-4.0); LYMPH # 1.1 K/mm3 (1.5-4.5); MEAN CORPUSCULAR HEMOGLOBIN 32.9 pg (27.0-33.0); MEAN CORPUSCULAR HGB CONC 36.1 g/dl (32.0-36.5); MEAN CORPUSCULAR VOLUME 91.1 fl (80.0-96.0); MONO # 0.4 K/mm3 (0.0-0.8); MONO % 6.3 % (0.0-5.0); NEUTROPHILS # 5.1 K/mm3 (1.8-7.7); NEUTROPHILS % 75.6 % (36.0-66.0); PLATELET COUNT, AUTOMATED 178 k/mm3 (150-450); WHITE BLOOD COUNT 6.8 K/mm3 (4.0-10.0)
[2017-02-02 05:26] LABS: ALBUMIN/GLOBULIN RATIO 0.88 (1.00-1.93); BILIRUBIN,TOTAL 0.4 MG/DL (0.2-1.0); CALCIUM LEVEL 8.2 MG/DL (8.8-10.2); CREATININE FOR GFR 1.81 MG/DL (0.55-1.02); GLOMERULAR FILTRATION RATE 28.9 (>39); MAGNESIUM LEVEL 2.4 MG/DL (1.8-2.4); POTASSIUM SERUM 4.2 MEQ/L (3.5-5.1); TOTAL PROTEIN 6.4 GM/DL (6.4-8.2)
--- NOTE | 2017-02-02 06:41 | ECHO ---
DATE OF PROCEDURE: 01/31/2017 REFERRING PHYSICIAN: Lavell Nguyen MD INDICATION: Chest pain. HEIGHT: 160 cm WEIGHT: 91 kg 2D MEASUREMENTS: Aortic root: 2.7 cm Left atrium 3.0 cm Ventricular septum: 1.37 cm Posterior wall: 1.41 cm Left ventricle diastole: 4.5 cm LVOT: 1.8 cm Inferior vena cava: 1.2 cm (more than 50% respiratory variation). DOPPLER MEASUREMENTS: Aortic valve velocity: 178 cm/s LVOT velocity: 91 cm/s LVOT VTI: 20.9 cm Trace mitral regurgitation. Mitral E velocity: 98.2 cm/s Mitral A velocity: 116 cm/s Mitral deceleration time: 116 ms Very mild tricuspid regurgitation. Estimated right ventricle systolic pressure 47 mmHg assuming a right atrial pressure of 5 mmHg. MITRAL ANNULAR TISSUE DOPPLER: E prime septal: 4.9 cm/s E prime lateral: 5.2 cm/s DESCRIPTION: Rhythm was sinus. Image quality was fair. No pericardial effusion. This is a 2D, M-mode, color flow Doppler and pulse wave Doppler examination that included mitral annular tissue Doppler. CONCLUSIONS: 1. Mild concentric left ventricular hypertrophy. Normal left ventricle (LV) wall motion and wall thickening. Normal LV systolic function. Left ventricular ejection fraction (LVEF) 60-65% by visual estimate. Grade 1 LV diastolic dysfunction (impaired relaxation filling pattern). 2. Suggestive of moderate elevation of estimated right ventricle systolic pressure (47 mmHg). Very mild tricuspid regurgitation. Normal right ventricle size and systolic function. 3. No pericardial effusion. 4. Otherwise normal appearing echocardiogram Doppler.
[2017-02-02] MEDS: HumaLOG INSULIN (NovoLOG) PER UNIT SC SCH (07:33)
[2017-02-02] MEDS ORDERED: AMLO5TAB2 PO (07:42)
[2017-02-02] MEDS ORDERED: HYDR10TAB PO (07:42)
[2017-02-02 08:00] VITALS: BP 146/68
[2017-02-02] MEDS: ESCITALOPRAM OXALATE 10 MG TAB (LEXAPRO) PO SCH (08:13)
[2017-02-02] MEDS: HEPARIN SOD (PORCINE) 5000 UNITS/ML VIAL SC SCH (08:13)
[2017-02-02] MEDS: LEVEMIR (INSULIN DETEMIR) 1 UNITS/0.01ML SC SCH (08:13)
[2017-02-02] MEDS: amLODIPine 5 MG TAB PO SCH (08:14)
[2017-02-02] MEDS: CYANOCOBALAMIN 500 MCG TAB PO SCH (08:14)
[2017-02-02] MEDS: VITAMIN D 1,000 INTERNATIONAL UNITS TABLET PO SCH (08:14)
[2017-02-02] MEDS: METOPROLOL SUCC *XL* 25MG TAB (TopROL *XL*) PO SCH (08:14)
[2017-02-02] MEDS: busPIRone 10 MG TAB PO SCH (08:15)
[2017-02-02] MEDS: SENOKOT S TAB PO SCH (08:15)
--- NOTE | 2017-02-02 11:35 | DSES ---
DATE OF ADMISSION: 01/30/2017 DATE OF DISCHARGE: 02/02/2017 SPECIALISTS INVOLVED IN CARE: None. COMPLICATIONS DURING STAY: None. PROCEDURES PERFORMED DURING STAY: None. DISCHARGE DIAGNOSES: Hypertensive urgency. Diabetes. Depression with anxiety. Dementia. Constipation. Congestive heart failure. Compensated grade 1 diastolic dysfunction. Hyperlipidemia. Dementia without behavioral symptoms. SUMMARY OF HER HOSPITALIZATION: This is a 76-year-old who presented from [facility] with somewhat elevated chest pressure, found to have elevated blood pressure, was admitted to the hospitalist service with hypertensive urgency. Blood pressure was relatively easily controlled with minimal intervention. I did have a discussion with the patient's daughter who requested that the patient not be extensively tested, worked up, we should control her symptoms. The patient's family is generally interested in minimizing medical intervention and keeping the patient as comfortable as possible as noted in the medical order of life-sustaining treatment (MOLST) form, which had previously been filled out at the [facility] and they prefer to think of her more as comfort care than anything else, although I do not see comfort care orders ordered from the [facility]. On the day of discharge, she is feeling well. She is pleasantly demented. Temperature 98.2, pulse 86, respiratory rate 18, blood pressure 146/68, 95% on room air. Breathing is symmetrical, rested. Heart is distant sounding. Abdomen is soft, doughy, nontender. White cell count 6.8, hemoglobin 12.6 and platelets of 178. BUN 28, creatinine 1.81. DISCHARGE INSTRUCTIONS: Include the following: Followup with Dr. Eaton upon return to the [facility]. Activity and diet as previously ordered. Norvasc 5 mg by mouth twice daily. Hydralazine 10 mg by mouth three times a day Tylenol as needed. [place] as needed. Dulcolax as needed. BuSpar 10 mg by mouth twice daily. Calcium carbonate as needed. Vitamin D supplement as deemed necessary. Vitamin B12 supplement as deemed necessary. Senokot-S 1 tablet by mouth twice daily. Donepezil 10 mg by mouth daily at bedtime. Enema as needed. Lexapro 10 by mouth daily Levemir 18 units subcutaneously daily Synthroid 50 mcg by mouth daily Memantine 10 mg by mouth daily Metoprolol succinate 25 mg by mouth daily Milk of Magnesia as needed Januvia 25 mg by mouth daily.
== END 2017-02-02 09:09 ==
LOC: M ED 07:22 → M ED INP 16:49 → INTOOBSV 16:49 → M PCU 01-31 16:29
PROVIDERS: ADMIT Internal Medicine; ATTEND Internal Medicine
DX: I16.0 Hypertensive urgency (principal); E11.9 Type 2 diabetes mellitus without complications; F32.9 Major depressive disorder, single episode, unspecified; F41.9 Anxiety disorder, unspecified; F03.90 Unspecified dementia, unspecified severity, without behavioral disturbance, psychotic disturbance, mood disturbance, and anxiety; K59.00 Constipation, unspecified; I50.32 Chronic diastolic (congestive) heart failure; E78.5 Hyperlipidemia, unspecified; N17.9 Acute kidney failure, unspecified; Z79.899 Other long term (current) drug therapy; Z79.4 Long term (current) use of insulin; Z88.8 Allergy status to other drugs, medicaments and biological substances; Z91.013 Allergy to seafood
CPT/HCPCS: 36415; 70450; 71010; 80048; 80053; 82550; 82553; 82575; 83735; 83880; 84300; 84443; 84484; 85025; 93005; 93041; 93306; 94760; 96372; 96374; 96375; 96376; 97161; 99285; G0378; G8978; G8979; G8980; J2405

== ENCOUNTER → 2017-02-06 | Outpatient (REF) | payer MEDICARE, BC, MEDICAID ==
[~2017-02-06] MED LIST changes: +AMLO5TAB2 PO; +BENCRE TOP; +BUSP10TA PO; +CALC1250 PO; +DULC10SU2 PR; +ENEM1ENE4 PR; +FEVE650S8 PR; +HYDR10TAB PO; +INSUDET SC; +JANU25TA PO; +LEXA1TAB PO; +MEMA1TAB2 PO; -METO1TAB32 PO; +METO25TA74 PO; +MILKSUS PO; +SENN8.6T7 PO; +TYLE325T5 PO; +VITA100066 PO
== END ==
LOC: SKLAB6 07:00
PROVIDERS: ATTEND Internal Medicine
DX: E11.9 Type 2 diabetes mellitus without complications (principal)

== ENCOUNTER → 2017-03-06 | Outpatient (REF) | payer MEDICARE, BC, MEDICAID ==
[~2017-03-06] MED LIST changes: +METO1TAB32 PO; -METO25TA74 PO
[2017-03-06 11:27] LABS: ALBUMIN/GLOBULIN RATIO 0.81 (1.00-1.93); BILIRUBIN,TOTAL 0.5 MG/DL (0.2-1.0); CALCIUM LEVEL 8.6 MG/DL (8.8-10.2); CREATININE FOR GFR 1.85 MG/DL (0.55-1.02); GLOMERULAR FILTRATION RATE 28.1 (>39); POTASSIUM SERUM 3.9 MEQ/L (3.5-5.1); TOTAL PROTEIN 6.7 GM/DL (6.4-8.2)
== END ==
LOC: SKLAB6 07:00
PROVIDERS: ATTEND Internal Medicine
DX: I10 Essential (primary) hypertension (principal); E03.9 Hypothyroidism, unspecified

== ENCOUNTER → 2017-04-03 | Outpatient (REF) | payer MEDICARE, BC, MEDICAID ==
[2017-04-03 10:37] LABS: MEAN CORPUSCULAR HEMOGLOBIN 30.7 pg (27.0-33.0); MEAN CORPUSCULAR HGB CONC 33.7 g/dl (32.0-36.5); MEAN CORPUSCULAR VOLUME 91.1 fl (80.0-96.0); RED CELL DISTRIBUTION WIDTH 12.8 % (11.5-14.5); WHITE BLOOD COUNT 7.3 K/mm3 (4.0-10.0)
[2017-04-03 10:38] LABS: CALCIUM LEVEL 8.6 MG/DL (8.8-10.2); CREATININE FOR GFR 1.69 MG/DL (0.55-1.02); GLOMERULAR FILTRATION RATE 31.2 (>39); POTASSIUM SERUM 4.4 MEQ/L (3.5-5.1)
== END ==
LOC: SKLAB6 07:00
PROVIDERS: ATTEND Internal Medicine
DX: I10 Essential (primary) hypertension (principal)

== ENCOUNTER → 2017-04-11 | Outpatient (REF) | payer MEDICARE, BC, MEDICAID ==
[2017-04-11 12:41] LABS: ANION GAP 10 MEQ/L (8-16); BLOOD UREA NITROGEN 23 MG/DL (7-18); CALCIUM LEVEL 8.1 MG/DL (8.8-10.2); CARBON DIOXIDE LEVEL 27 MEQ/L (21-32); CHLORIDE LEVEL 101 MEQ/L (98-107); CREATININE FOR GFR 1.71 MG/DL (0.55-1.02); GLOMERULAR FILTRATION RATE 30.8 (>39); GLUCOSE, FASTING 196 MG/DL (83-110); POTASSIUM SERUM 4.6 MEQ/L (3.5-5.1); SODIUM LEVEL 138 MEQ/L (136-145)
--- NOTE | 2017-04-12 12:10 | ECGEPIP ---
Stationary ECG Study [facility] Test Date: 2017-04-12 Pat Name: EMILY MURPHY Department: Room: - Gender: F Blood Bank Technician: PANCHITO : 1940 Requested By: Apryl Hernandez Order Number: [id number] Reading MD: Deborah Boudreaux Measurements Intervals [place] Rate: 52 P: 59 [place]: 183 QRS: 14 QRSD: 96 T: 100 QT: 414 QTc: 388 Interpretive Statements SINUS BRADYCARDIA NONSPECIFIC T-WAVE ABNORMALITY SINCE 04/11/17 SINUS BRADYCARDIA REPLACED ATRIAL FIBRILLATION Electronically Signed On 04-12-2017 12:10:52 EDT by Deborah Boudreaux
== END ==
LOC: SKLAB6 11:00
PROVIDERS: ATTEND Internal Medicine
DX: R00.1 Bradycardia, unspecified (principal)

== ENCOUNTER → 2017-04-12 | Outpatient (REF) | payer MEDICARE, BC, MEDICAID ==
--- NOTE | 2017-04-12 11:57 | ECGEPIP ---
Stationary ECG Study [facility] Test Date: 2017-04-11 Pat Name: EMILY MURPHY Department: Room: - Gender: F Nurse Educator: WILLIE : 1940 Requested By: Apryl Hernandez Order Number: [id number] Reading MD: Deborah Boudreaux Measurements Intervals [place] Rate: 120 P: [place]: 0 QRS: 17 QRSD: 93 T: 58 QT: 301 QTc: 425 Interpretive Statements ATRIAL FIBRILLATION WITH RAPID VENTRICULAR RESPONSE NONSPECIFIC ST & T-WAVE ABNORMALITY ABNORMAL RHYTHM ECG A. FIBRILLATION IS NEW AND STT ABNORMALITIES ARE LESS APPARENT SINCE 01/30/17 Electronically Signed On 04-12-2017 11:56:39 EDT by Deborah Boudreaux
== END ==
LOC: M EKG 13:00
PROVIDERS: ATTEND Internal Medicine
DX: I48.91 Unspecified atrial fibrillation (principal); R94.31 Abnormal electrocardiogram [ECG] [EKG]

== ENCOUNTER 2017-04-13 23:31 | Emergency (ER) | payer MEDICARE, BC, MEDICAID ==
[~2017-04-13] VITALS: Ht 160 cm; Wt 92.2 kg
[2017-04-14 00:16] LABS: BASO # 0.1 K/mm3 (0.0-0.2); BASO % 0.7 % (0.0-1.0); EOS # 0.1 K/mm3 (0.0-0.50); EOS % 0.9 % (0.0-3.0); LARGE UNSTAINED CELL # 0.1 K/mm3 (0.0-0.4); LARGE UNSTAINED CELL % 1.2 % (0.0-4.0); LYMPH # 1.1 K/mm3 (1.5-4.5); LYMPH % 11.7 % (24.0-44.0); MEAN CORPUSCULAR HEMOGLOBIN 31.1 pg (27.0-33.0); MEAN CORPUSCULAR HGB CONC 34.4 g/dl (32.0-36.5); MEAN CORPUSCULAR VOLUME 90.2 fl (80.0-96.0); MONO # 0.4 K/mm3 (0.0-0.8); MONO % 4.7 % (0.0-5.0); NEUTROPHILS % 80.9 % (36.0-66.0); PLATELET COUNT, AUTOMATED 204 k/mm3 (150-450); RED CELL DISTRIBUTION WIDTH 13.1 % (11.5-14.5); WHITE BLOOD COUNT 8.6 K/mm3 (4.0-10.0)
[2017-04-14 00:32] LABS: ANION GAP 9 MEQ/L (8-16); BLOOD UREA NITROGEN 25 MG/DL (7-18); CALCIUM LEVEL 8.7 MG/DL (8.8-10.2); CARBON DIOXIDE LEVEL 29 MEQ/L (21-32); CHLORIDE LEVEL 93 MEQ/L (98-107); CREATININE FOR GFR 1.97 MG/DL (0.55-1.02); GLOMERULAR FILTRATION RATE 26.2 (>39); GLUCOSE, FASTING 323 MG/DL (83-110); SODIUM LEVEL 131 MEQ/L (136-145)
[2017-04-14] MEDS ORDERED: NITROGLYCERIN 0.4 MG SUBL TABLET SL STA (00:48)
[2017-04-14 01:04] VITALS: BP 140/67
[2017-04-14 04:07] VITALS: BP 174/74
--- NOTE | 2017-04-14 08:32 | REP ---
Portable chest x-ray: Sitting AP view. History: Chest pain. Comparison study: January 30, 2017. Findings: EKG monitoring electrodes overlie the chest. Heart is not enlarged. Pulmonary vasculature is not increased. Lung perla are clear. Impression: No active disease. Signed by Umair Odonnell MD 04/14/2017 08:39 A
--- NOTE | 2017-04-14 19:39 | ECGEPIP ---
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
--- NOTE | 2017-04-14 19:40 | ECGEPIP ---
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
== END 2017-04-14 04:51 | disposition home or self-care (01) ==
LOC: M ED 23:31 → EDBD 23:31 → M ED 04-14 04:51
DX: R07.89 Other chest pain (principal); Z91.013 Allergy to seafood; Z88.8 Allergy status to other drugs, medicaments and biological substances; Z79.899 Other long term (current) drug therapy; Z79.4 Long term (current) use of insulin

== ENCOUNTER → 2017-04-17 | Outpatient (REF) | payer MEDICARE, BC, MEDICAID ==
[2017-04-17 08:34] LABS: MEAN CORPUSCULAR HEMOGLOBIN 31.1 pg (27.0-33.0); MEAN CORPUSCULAR HGB CONC 35.5 g/dl (32.0-36.5); MEAN CORPUSCULAR VOLUME 87.7 fl (80.0-96.0); RED CELL DISTRIBUTION WIDTH 12.9 % (11.5-14.5); WHITE BLOOD COUNT 8.2 K/mm3 (4.0-10.0)
[2017-04-17 08:54] LABS: CALCIUM LEVEL 8.8 MG/DL (8.8-10.2); CREATININE FOR GFR 1.7 MG/DL (0.55-1.02); POTASSIUM SERUM 4.1 MEQ/L (3.5-5.1)
== END ==
LOC: SKLAB6 07:00
PROVIDERS: ATTEND Internal Medicine
DX: I50.9 Heart failure, unspecified (principal); D64.9 Anemia, unspecified

== ENCOUNTER → 2017-04-24 | Outpatient (REF) | payer MEDICARE, BC, MEDICAID ==
[2017-04-24 08:36] LABS: CALCIUM LEVEL 8.1 MG/DL (8.8-10.2); CREATININE FOR GFR 1.67 MG/DL (0.55-1.02); GLOMERULAR FILTRATION RATE 31.7 (>39); POTASSIUM SERUM 4.2 MEQ/L (3.5-5.1)
== END ==
LOC: SKLAB6 07:00
PROVIDERS: ATTEND Internal Medicine
DX: D64.9 Anemia, unspecified (principal); I50.9 Heart failure, unspecified

== ENCOUNTER → 2017-05-01 | Outpatient (REF) | payer MEDICARE, BC, MEDICAID ==
[2017-05-01 09:28] LABS: CALCIUM LEVEL 8.6 MG/DL (8.8-10.2); CREATININE FOR GFR 1.82 MG/DL (0.55-1.02); GLOMERULAR FILTRATION RATE 28.7 (>39); POTASSIUM SERUM 4.5 MEQ/L (3.5-5.1)
== END ==
LOC: SKLAB6 07:00
PROVIDERS: ATTEND Internal Medicine
DX: I50.9 Heart failure, unspecified (principal)

== ENCOUNTER → 2017-05-08 | Outpatient (REF) | payer MEDICARE, BC, MEDICAID ==
[2017-05-08 10:02] LABS: CALCIUM LEVEL 8.1 MG/DL (8.8-10.2); CREATININE FOR GFR 1.79 MG/DL (0.55-1.02); GLOMERULAR FILTRATION RATE 29.2 (>39); POTASSIUM SERUM 4.2 MEQ/L (3.5-5.1)
== END ==
LOC: SKLAB6 07:00
PROVIDERS: ATTEND Internal Medicine
DX: I50.9 Heart failure, unspecified (principal)

== ENCOUNTER → 2017-05-15 | Outpatient (REF) | payer MEDICARE, BC, MEDICAID ==
--- NOTE | 2017-05-15 19:54 | ECGEPIP ---
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
== END ==
LOC: SKLAB6 07:00
PROVIDERS: ATTEND Internal Medicine
DX: R00.1 Bradycardia, unspecified (principal); R94.31 Abnormal electrocardiogram [ECG] [EKG]

== ENCOUNTER → 2017-05-22 | Outpatient (REF) | payer MEDICARE, BC, MEDICAID ==
[2017-05-22 08:44] LABS: CREATININE FOR GFR 1.9 MG/DL (0.55-1.02); GLOMERULAR FILTRATION RATE 27.3 (>39); POTASSIUM SERUM 3.8 MEQ/L (3.5-5.1)
--- NOTE | 2017-05-23 23:10 | ECGEPIP ---
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
== END ==
LOC: SKLAB6 07:00
PROVIDERS: ATTEND Internal Medicine
DX: I50.9 Heart failure, unspecified (principal)

== ENCOUNTER → 2017-06-05 | Outpatient (REF) | payer MEDICARE, BC, MEDICAID ==
[2017-06-05 09:59] LABS: MEAN CORPUSCULAR HEMOGLOBIN 30.1 pg (27.0-33.0); MEAN CORPUSCULAR HGB CONC 34.2 g/dl (32.0-36.5); MEAN CORPUSCULAR VOLUME 88.1 fl (80.0-96.0); RED CELL DISTRIBUTION WIDTH 13.2 % (11.5-14.5); WHITE BLOOD COUNT 8.1 10^3/uL (4.0-10.0)
[2017-06-05 10:25] LABS: ALBUMIN 3.1 GM/DL (3.2-5.2); ALBUMIN/GLOBULIN RATIO 0.78 (1.00-1.93); BILIRUBIN,TOTAL 0.5 MG/DL (0.2-1.0); CALCIUM LEVEL 9.1 MG/DL (8.8-10.2); CREATININE FOR GFR 1.9 MG/DL (0.55-1.02); GLOMERULAR FILTRATION RATE 27.3 (>39); POTASSIUM SERUM 3.9 MEQ/L (3.5-5.1); TOTAL PROTEIN 7.1 GM/DL (6.4-8.2)
== END ==
LOC: SKLAB6 07:00
PROVIDERS: ATTEND Internal Medicine
DX: I11.0 Hypertensive heart disease with heart failure (principal); I50.9 Heart failure, unspecified; Z79.01 Long term (current) use of anticoagulants; R73.9 Hyperglycemia, unspecified

== ENCOUNTER → 2017-07-03 | Outpatient (REF) | payer MEDICARE, BC, MEDICAID ==
[2017-07-03 08:34] LABS: MEAN CORPUSCULAR HEMOGLOBIN 30.3 pg (27.0-33.0); MEAN CORPUSCULAR HGB CONC 34.1 g/dl (32.0-36.5); MEAN CORPUSCULAR VOLUME 88.8 fl (80.0-96.0); PLATELET COUNT, AUTOMATED 215 10^3/uL (150-450); RED CELL DISTRIBUTION WIDTH 13.2 % (11.5-14.5); WHITE BLOOD COUNT 9.2 10^3/uL (4.0-10.0)
[2017-07-03 08:51] LABS: CREATININE FOR GFR 1.72 MG/DL (0.55-1.02); GLOMERULAR FILTRATION RATE 30.6 (>39); POTASSIUM SERUM 4.7 MEQ/L (3.5-5.1)
== END ==
LOC: SKLAB6 07:00
PROVIDERS: ATTEND Internal Medicine
DX: I50.9 Heart failure, unspecified (principal); Z79.01 Long term (current) use of anticoagulants

== ENCOUNTER 2017-09-12 18:29 | Emergency (ER) | payer MEDICARE, BC, MEDICAID | END 2017-09-12 20:21 | disposition home or self-care (01) | LOC: M ED 18:29 | DX: I48.91 Unspecified atrial fibrillation (principal); I50.9 Heart failure, unspecified; I13.0 Hypertensive heart and chronic kidney disease with heart failure and stage 1 through stage 4 chronic kidney disease, or unspecified chronic kidney disease; N18.3 Chronic kidney disease, stage 3 (moderate); E11.9 Type 2 diabetes mellitus without complications; J44.9 Chronic obstructive pulmonary disease, unspecified; F03.90 Unspecified dementia, unspecified severity, without behavioral disturbance, psychotic disturbance, mood disturbance, and anxiety; E78.5 Hyperlipidemia, unspecified; E07.9 Disorder of thyroid, unspecified; E53.8 Deficiency of other specified B group vitamins; K21.9 Gastro-esophageal reflux disease without esophagitis; Z79.899 Other long term (current) drug therapy; Z79.4 Long term (current) use of insulin; Z88.8 Allergy status to other drugs, medicaments and biological substances; Z91.013 Allergy to seafood | CPT/HCPCS: 74019; 99283 ==

== ENCOUNTER → 2017-09-12 | Outpatient (REF) | payer MEDICARE, BC, MEDICAID ==
[2017-09-12 15:17] LABS: HEMATOCRIT 35.3 % (36.0-47.0); HEMOGLOBIN 11.9 g/dl (12.0-16.0); MEAN CORPUSCULAR HEMOGLOBIN 29.5 pg (27.0-33.0); MEAN CORPUSCULAR HGB CONC 33.7 g/dl (32.0-36.5); MEAN CORPUSCULAR VOLUME 87.6 fl (80.0-96.0); PLATELET COUNT, AUTOMATED 184 10^3/uL (150-450); RED BLOOD COUNT 4.03 10^6/uL (4.00-5.40); RED CELL DISTRIBUTION WIDTH 13.2 % (11.5-14.5); WHITE BLOOD COUNT 11.8 10^3/uL (4.0-10.0)
[2017-09-12 15:42] LABS: ALBUMIN 2.9 GM/DL (3.2-5.2); ALBUMIN/GLOBULIN RATIO 0.78 (1.00-1.93); ALKALINE PHOSPHATASE 46 U/L (45-117); ALT/SGPT 15 U/L (12-78); AMYLASE 40 U/L (25-115); ANION GAP 11 MEQ/L (8-16); AST/SGOT 12 U/L (7-37); BILIRUBIN,TOTAL 0.5 MG/DL (0.2-1.0); BLOOD UREA NITROGEN 25 MG/DL (7-18); CALCIUM LEVEL 8.6 MG/DL (8.8-10.2); CARBON DIOXIDE LEVEL 30 MEQ/L (21-32); CHLORIDE LEVEL 93 MEQ/L (98-107); CREATININE FOR GFR 1.85 MG/DL (0.55-1.02); GLOMERULAR FILTRATION RATE 28.1 (>39); GLUCOSE, FASTING 356 MG/DL (83-110); LIPASE 200 U/L (73-393); POTASSIUM SERUM 3.6 MEQ/L (3.5-5.1); SODIUM LEVEL 134 MEQ/L (136-145); TOTAL PROTEIN 6.6 GM/DL (6.4-8.2)
== END ==
LOC: SKLAB6 13:40
DX: E03.9 Hypothyroidism, unspecified (principal)
CPT/HCPCS: 74019

== ENCOUNTER 2017-12-03 05:58 | Emergency (ER) | payer OTHER, BC, MEDICAID, MEDICARE ==
[2017-12-03] MEDS: ONDANSETRON 4 MG ORAL DISINTEGRATING TAB (Q0162 PER 1MG) PO (07:47)
[2017-12-03] MEDS: MORPHINE 4 MG/ML 1ML VIAL/SYRINGE (J2270) IM (07:48)
== END 2017-12-03 09:38 | disposition home or self-care (01) ==
LOC: M ED 05:58
DX: S72.452A Displaced supracondylar fracture without intracondylar extension of lower end of left femur, initial encounter for closed fracture (principal); X58.XXXA Exposure to other specified factors, initial encounter; Y92.129 Unspecified place in nursing home as the place of occurrence of the external cause; Y93.9 Activity, unspecified; M47.812 Spondylosis without myelopathy or radiculopathy, cervical region; M16.12 Unilateral primary osteoarthritis, left hip; M25.752 Osteophyte, left hip; F03.90 Unspecified dementia, unspecified severity, without behavioral disturbance, psychotic disturbance, mood disturbance, and anxiety; I10 Essential (primary) hypertension; Z51.5 Encounter for palliative care; Z79.899 Other long term (current) drug therapy; Z91.013 Allergy to seafood; Z88.8 Allergy status to other drugs, medicaments and biological substances
CPT/HCPCS: J2270

== ENCOUNTER → 2017-12-04 | Outpatient (REF) | payer MEDICARE, OTHER, BC, MEDICAID ==
[2017-12-04 10:32] LABS: HEMATOCRIT 33.5 % (36.0-47.0); HEMOGLOBIN 11.6 g/dl (12.0-15.5); MEAN CORPUSCULAR HEMOGLOBIN 29.7 pg (27.0-33.0); MEAN CORPUSCULAR HGB CONC 34.6 g/dl (32.0-36.5); MEAN CORPUSCULAR VOLUME 85.9 fl (80.0-96.0); PLATELET COUNT, AUTOMATED 157 10^3/uL (150-450); RED CELL DISTRIBUTION WIDTH 13.8 % (11.5-14.5); WHITE BLOOD COUNT 8.6 10^3/uL (4.0-10.0)
[2017-12-04 14:23] LABS: ALBUMIN 2.9 GM/DL (3.2-5.2); ALKALINE PHOSPHATASE 46 U/L (45-117); ALT/SGPT 14 U/L (12-78); ANION GAP 7 MEQ/L (8-16); AST/SGOT 16 U/L (7-37); BILIRUBIN,TOTAL 0.5 MG/DL (0.2-1.0); BLOOD UREA NITROGEN 30 MG/DL (7-18); CALCIUM LEVEL 8.1 MG/DL (8.8-10.2); CARBON DIOXIDE LEVEL 28 MEQ/L (21-32); CHLORIDE LEVEL 97 MEQ/L (98-107); CREATININE FOR GFR 2.01 MG/DL (0.55-1.30); GLOMERULAR FILTRATION RATE 25.6 (>39); GLUCOSE, FASTING 323 MG/DL (70-100); POTASSIUM SERUM 3.9 MEQ/L (3.5-5.1); SODIUM LEVEL 132 MEQ/L (136-145); TOTAL PROTEIN 5.8 GM/DL (6.4-8.2)
== END ==
LOC: SKLAB6 08:00
DX: I50.9 Heart failure, unspecified (principal)
CPT/HCPCS: 80053